=== PATIENT | female | born 1985 | race Caucasian/White ===

== ENCOUNTER 2019-12-14 02:18 | Inpatient (IN) | payer OTHER ==
[~2019-12-14] VITALS: Ht 160 cm; Wt 49.4 kg
--- NOTE | ~2019-12-14 | O ---
[facility] [place] [address] [address] OPERATIVE REPORT Name: JANIYA ARGUETA Room #: 450-P ADM IN M.R.#: [id number] Admission: 12/14/19 Attend Phys: Dru Henry MD Discharge: Date of : 81 Report #: [id number] THIS REPORT FOR: cc: RENETTA - No family physician/PCP RENETTA - No family physician/PCP Elmo Roman MD ~ CC: Dru JACKSON physician/PCP DATE OF SERVICE: 12/15/2019 PREOPERATIVE DIAGNOSIS: Acute cholecystitis. POSTOPERATIVE DIAGNOSIS: Acute cholecystitis. OPERATION: Laparoscopic cholecystectomy. SURGEON: Elmo Roman MD ANESTHESIA: General. ESTIMATED BLOOD LOSS: Minimal. SPECIMEN: Gallbladder. DESCRIPTION OF PROCEDURE: After informed consent was obtained, the patient was brought to the operating room and placed supine. SCDs were placed and working, preoperative antibiotics were administered, general anesthesia was induced. The abdomen was prepped and draped in the usual sterile fashion. A Veress needle was inserted in the left upper quadrant. Pneumoperitoneum was established. Supraumbilical 5 mm trocar was placed under direct vision. Three right upper quadrant 5 mm ports were placed. Gallbladder was then grasped and retracted cephalad. Infundibulum was grasped and retracted laterally. I dissected out the cystic duct and cystic artery. The cystic duct and artery were clipped and ligated after the cystic plate was fully identified. Cystic duct and artery were clipped and ligated leaving 2 clips on the remaining duct and one on the remaining artery. Gallbladder was then taken off the liver bed with electrocautery. It was placed into an Endopouch and removed. Fascia was then closed with a [id number] 0 Vicryl. Skin was closed with 4-0 Monocryl. Incisions were sealed with Dermabond. COMPLICATIONS: None. [facility] [address] [place] [address] OPERATIVE REPORT Name: JANIYA ARGUETA Room #: 450-P [facility].#: [id number] Admission: 12/14/19 Attend Phys: Dru Henry MD Discharge: Date of : 81 Report #: [id number] DISPOSITION: The patient was taken to recovery in satisfactory condition. By: [id number] Elmo Roman MD /nt
[2019-12-14 02:33] VITALS: BP 129/81
[2019-12-14 03:04] LABS: BASOPHILS 0.8 % (0.0-2.0); EOSINOPHILS 1.9 % (0.0-3.0); HEMATOCRIT 40.2 % (37.0-47.0); HEMOGLOBIN 13.6 gm/dL (12.0-15.0); LYMPHOCYTES 34.1 % (24.0-44.0); MCH 31.8 pg (26.0-34.0); MCHC 33.8 g/dL (28.0-37.0); MCV 94.2 fL (80.0-100.0); MONOCYTES 7.3 % (1.0-8.0); PLATELET COUNT 261 thou/uL (150-400); POLYS 55.9 % (36.0-66.0); RBC 4.27 mil/uL (4.20-5.00); RDW 13.8 % (10.5-14.5)
[2019-12-14 03:13] LABS: CREATININE 0.8 mg/dL (0.6-1.0); POTASSIUM 4.1 mmol/L (3.5-5.1)
[2019-12-14 03:19] LABS: ALBUMIN 3.8 g/dL (3.4-5.0); TOTAL BILIRUBIN 0.4 mg/dL (0.2-1.0); TOTAL PROTEIN 7.6 g/dL (6.4-8.2)
[2019-12-14 03:23] LABS: URINE BILIRUBIN NEGATIVE (Negative); URINE BLOOD 1+ (Negative); URINE CLARITY CLEAR; URINE COLOR YELLOW; URINE GLUCOSE-RANDOM* NEGATIVE (Negative); URINE KETONES NEGATIVE (Negative); URINE LEUKOCYTES-REFLEX NEGATIVE (Negative); URINE NITRITE-REFLEX NEGATIVE (Negative); URINE PROTEIN (DIPSTICK) NEGATIVE (Negative); URINE SPECIFIC GRAVITY >= 1.030 (1.005-1.035); URINE UROBILINOGEN 0.2 E.U./dl (0.2-1.0)
[2019-12-14 04:50] LABS: BACTERIA-REFLEX 1-9 Few /HPF (None Seen); CALCIUM OXALATE 0-3 Few /LPF (None Seen); CASTS None Seen /LPF (None Seen); MUCUS 4-6 Moderate strn/LPF (None Seen); SQUAMOUS 0-3 Few /LPF (0-3); URINE RBC 3-10 Few /HPF (0-2); URINE WBC-REFLEX 0-5 Rare /HPF (0-5)
[2019-12-14 05:57] VITALS: BP 103/71
[2019-12-14 06:10] VITALS: BP 94/61
[2019-12-14 06:30] VITALS: BP 115/75
--- NOTE | 2019-12-14 06:34 | NUR ---
ADMITTED TO THE UNIT AT 1830. PT IS A/O X4 AND UP AD KUSH. DOES NOT SPEAK VERY MUCH AMHARIC. THE DAY SHIFT NURSE IS BETTER TO ASSIST IN FINISHING ADMISSION SHE IS GEORGIAN SPEAKING. PT IS TEARFUL AND APPEARS TO BE IN PAIN. AWAITING ORDERS FOR PAIN MEDICATION. AT THIS TIME, PT IS LYING IN HER BED AND APPEARS TO BE ON HER PHONE. CONSENTS SIGNED, AND APPROPRIATE NAME BAND PLACED. WILL REPORT TO ONCOMING NURSE.
[2019-12-14 12:29] VITALS: BP 106/58
--- NOTE | 2019-12-14 14:59 | NUR ---
ASSUMED PT CARE THIS AM. PT VITAL SIGNS STABLE, PATIENT IS A&OX4. ADMISSION ASSESSMENT COMPLETE. PT IS IN PAIN, ORDERS PUT IN FOR MEDICATION FROM DR. VALLADARES. PT INITIALLY DID NOT RESPOND TO PAIN MEDICATION GIVEN, BUT OVER TIME REPORTED A DECREASE IN PAIN FROM A 10 TO A 3. PT CONTINENT AND AMBULATES TO THE BATHROOM. PT REPORTS NO PAIN WITH RIGHT AC IV, AND FLUIDS ARE INFUSING. PT HAD A COVID TEST WHICH CAME BACK NEGATIVE. SCDS ARE ON. PT IS ON A CLEAR LIQUID DIET. PT IS COOPERATIVE AND TURNS SELF INDEPENDENTLY.
[2019-12-14 19:37] VITALS: BP 89/55
[2019-12-15 03:38] VITALS: BP 101/62
--- NOTE | 2019-12-15 04:15 | NUR ---
VSS-AFEBRILE. OCCASIONAL C/O ABDOMINAL PAIN, RELIEVED WITH PO/IV PAIN MEDICATIONS. KEPT NPO AFTER MIDNIGHT. NO REPORTED N/V. OOB AD KUSH TO USE RESTROOM, STEADY ON FFET. NO DIFFICULTY VOIDING, NO BM THIS SHIFT. CALLS APPROPRIATELY FOR ANY NEEDED ASSISTANCE.
[2019-12-15 07:22] VITALS: BP 93/54
[2019-12-15] MEDS ORDERED: NORCO 10-325 T1 EACH PO (11:33)
[2019-12-15 13:18] VITALS: BP 93/54
--- NOTE | 2019-12-15 15:03 | NUR ---
PT IS AOX4, VSS, PT RATES PAIN IN ABD AREA 4-5 OUT OF 10. PT HAS 5 SURGICAL SITES THAT ARE CDI. PT TOLERATES A REGULAR DIET. NURSE GAVE ORAL PAIN ANALGESIC AND NAUSEA MEDICATION. IV DISCONTINUED, PT IS READY TO TRANSPORT PT HOME PER CAR.
== END 2019-12-15 15:17 | disposition home or self-care (01) | DRG 419 ==
LOC: ER 02:18 → EROBS 05:36 → 4W 06:46
PROVIDERS: Emergency Medicine; ADMIT Surgery; ATTEND Surgery
PROC: 0FT44ZZ Resection of Gallbladder, Percutaneous Endoscopic Approach (ICD-10-PCS; principal; 2019-12-15)
DX: K80.42 Calculus of bile duct with acute cholecystitis without obstruction (principal); Z20.828 Contact with and (suspected) exposure to other viral communicable diseases
CPT/HCPCS: 10047; 50010; 50101; 50411; 50555; 50558; 51489; 52265; 52266; 53307; 53310; 53312; 54118; 55245; 56462; 56525; 56526; 62110; 62900; 70005

== ENCOUNTER 2019-12-30 01:41 | Inpatient (IN) | payer OTHER ==
[~2019-12-30] VITALS: Ht 160 cm; Wt 71.2 kg
[~2019-12-30 01:41] MED LIST: NORCO 10-325 T1 EACH PO
[2019-12-30 02:32] LABS: BASOPHILS 0.7 % (0.0-2.0); EOSINOPHILS 3.4 % (0.0-3.0); HEMATOCRIT 37.3 % (37.0-47.0); HEMOGLOBIN 12.6 gm/dL (12.0-15.0); LYMPHOCYTES 35.2 % (24.0-44.0); MCH 31.3 pg (26.0-34.0); MCHC 33.7 g/dL (28.0-37.0); MCV 92.9 fL (80.0-100.0); MONOCYTES 5.8 % (1.0-8.0); PLATELET COUNT 298 thou/uL (150-400); POLYS 54.9 % (36.0-66.0); RBC 4.01 mil/uL (4.20-5.00); RDW 13.4 % (10.5-14.5); WBC 12.8 thou/uL (4.0-11.0)
[2019-12-30 02:37] LABS: ANION GAP 13 mmol/L (7-16); BUN 14 mg/dL (7-18); CALCIUM 8.7 mg/dL (8.5-10.1); CHLORIDE 105 mmol/L (98-107); CO2 22 mmol/L (21-32); CREATININE 0.9 mg/dL (0.6-1.0); GLUCOSE 101 mg/dL (74-106); POTASSIUM 3.5 mmol/L (3.5-5.1); SODIUM 140 mmol/L (136-145)
[2019-12-30 02:47] LABS: ALBUMIN 3.5 g/dL (3.4-5.0); LIPASE 95 U/L (73-393); SGOT 39 U/L (15-37); SGPT 49 U/L (30-65); TOTAL BILIRUBIN 0.2 mg/dL (0.2-1.0); TOTAL PROTEIN 7.2 g/dL (6.4-8.2); TROPONIN-I <0.06 ng/mL (<0.06)
[2019-12-30 04:34] LABS: URINE BILIRUBIN NEGATIVE (Negative); URINE BLOOD TRACE (Negative); URINE CLARITY CLEAR; URINE COLOR YELLOW; URINE GLUCOSE-RANDOM* NEGATIVE (Negative); URINE KETONES NEGATIVE (Negative); URINE LEUKOCYTES-REFLEX NEGATIVE (Negative); URINE NITRITE-REFLEX NEGATIVE (Negative); URINE PROTEIN (DIPSTICK) NEGATIVE (Negative); URINE UROBILINOGEN 0.2 E.U./dl (0.2-1.0)
[2019-12-30 05:00] VITALS: BP 120/72
[2019-12-30 05:27] VITALS: BP 105/66
[2019-12-30 08:19] VITALS: BP 116/72
--- NOTE | 2019-12-30 11:04 | NUR ---
PT'S STATED THAT THEY WOULD LIKE A SURGICAL FOLLOW UP VISIT POST DISCHARGE. HE STATES THEY WERE TOLD THEY WOULD HAVE A CALL AND FOLLOW UP VISIT AFTER TWO WEEKS BUT NO ONE CALLED THEM. STATES PT WILL ALSO NEED A WORK RELEASE NOTE AT D/C.
[2019-12-30 15:41] VITALS: BP 106/74
--- NOTE | 2019-12-30 16:58 | NUR ---
PT'S MARIEL STATES THAT HE HAS TO WORK TOMORROW. HE WOULD LIKE THE STAFF TO USE THE C[employer] TILE FLOOR LAYER LINE IF THE DOCTOR ROUNDS AND HE HAS ALREADY LEFT FOR THE DAY. THIS RN WILL PASS THIS INFORMATION ON TO THE NIGHT RN AT SHIFT REPORT. CHARGE NURSE WAS ALSO MADE AWARE ON THIS SHIFT.
[2019-12-30 19:25] VITALS: BP 106/57
--- NOTE | 2019-12-31 05:15 | NUR ---
ASSUEMED PT CARE AROUND 1930. UZBEK SPEAKING ONLY. VSS. LAP SITES CDI. DENIES ABD PAIN,N,V. NO S/S ACUTE DISTRESS NOTED OR REPORTED AT THIS TIME. WILL CONT TO MONITOR FOR ANY CHANGES IN CONDITION.
[2019-12-31 05:42] VITALS: BP 101/54
[2019-12-31 07:11] VITALS: BP 110/67
--- NOTE | 2019-12-31 08:13 | EKG ---
[facility] [place] [address] [place] [address] ELECTROCARDIOGRAM REPORT Name: JANIYA ARGUETA Room #: 455-P ADM IN M.R.#: [id number] Admission: 12/30/19 Attend Phys: Dru Henry MD Discharge: Date of : 81 Report #: [id number] THIS REPORT FOR: cc: NO FAMILY PHYSICIAN or PCP NO FAMILY PHYSICIAN or PCP Dio Rothman MD [facility] ~ THIS REPORT FOR: //name// [facility] ED Test Date: 2019-12-30 Test Time: 02:37:16 Pat Name: JANIYA GRADY Department: Room: [facility] Gender: F Pants Presser Automatic: mpark : [phone] Requested By: Justin Reynoso Order Number: [id number] MD: Dio Rothman Measurements Intervals [place] Rate: 71 P: 75 FL: 154 QRS: 65 QRSD: 86 T: 47 QT: 397 QTc: 432 Interpretive Statements Sinus rhythm Normal tracing No previous ECG available for comparison Electronically Signed On 12-31-2019 8:13:18 CDT by Dio Rothman [email or web address] <ELECTRONICALLY SIGNED> By: Dio Rothman MD, FAC 12/31/19 0813 0237 Dio Rothman MD, [facility] /EPI
[2019-12-31 13:37] VITALS: BP 110/67
--- NOTE | 2019-12-31 19:37 | NUR ---
ASSUMED CARE OF PATIENT AT APPROX 0700. ASSESSMENT CHARTED. VSS. PATIENT IS A&OX4, KHMER SPEAKING. DENIES PAIN. DENIES N/V. LAP SITE C/D/I. DR. MARTINEZ EXAMINED HER AND CLEARED HER FOR DISCHARGE. LEFT UNIT AT 1400. VOICED NO OTHER NEEDS.
--- NOTE | 2019-12-31 19:43 | NUR ---
I AGREE WITH NURSING ASSESSMENT AND NURSING NOTE DONE BY SERJIO/EMPLOYMENT SECURITY OFFICER.
== END 2019-12-31 15:22 | disposition home or self-care (01) | DRG 392 ==
LOC: ER 01:41 → EROBS 03:54 → 4W 03:54
PROVIDERS: Emergency Medicine; ADMIT Surgery; ATTEND Surgery
DX: R11.0 Nausea (principal); R10.11 Right upper quadrant pain; Z90.49 Acquired absence of other specified parts of digestive tract; Z79.899 Other long term (current) drug therapy
CPT/HCPCS: 10040

== ENCOUNTER 2020-08-19 08:43 | Emergency (ER) | payer OTHER ==
[~2020-08-19] VITALS: Ht 162.6 cm; Wt 56.7 kg
[2020-08-19] MEDS ORDERED: TYLENOL (08:51)
[2020-08-19] MEDS ORDERED: ASPIRIN (08:51)
[2020-08-19] MEDS ORDERED: BUTALB-APAP-CA1 EACH PO (10:26)
[2020-08-19 11:00] VITALS: BP 99/64
== END 2020-08-19 11:00 | disposition home or self-care (01) ==
LOC: ER 08:43
DX: R51.9 Headache, unspecified (principal); H53.149 Visual discomfort, unspecified; Z98.890 Other specified postprocedural states; Z79.899 Other long term (current) drug therapy

== ENCOUNTER 2021-02-15 23:27 | Emergency (ER) | payer OTHER ==
[~2021-02-15] VITALS: Ht 154.9 cm; Wt 55.3 kg
[~2021-02-15 23:27] MED LIST changes: +ASPIRIN; +BUTALB-APAP-CA1 EACH PO; +TYLENOL
[2021-02-15 23:55] LABS: URINE BILIRUBIN NEGATIVE (Negative); URINE BLOOD 1+ (Negative); URINE CLARITY CLEAR; URINE COLOR YELLOW; URINE GLUCOSE-RANDOM* NEGATIVE (Negative); URINE KETONES TRACE (Negative); URINE LEUKOCYTES-REFLEX NEGATIVE (Negative); URINE NITRITE-REFLEX NEGATIVE (Negative); URINE PROTEIN (DIPSTICK) NEGATIVE (Negative); URINE SPECIFIC GRAVITY >= 1.030 (1.005-1.035); URINE UROBILINOGEN 0.2 E.U./dl (0.2-1.0)
[2021-02-16 00:08] LABS: BACTERIA-REFLEX None Seen /HPF (None Seen); CASTS None Seen /LPF (None Seen); CRYSTALS None Seen /LPF (None Seen); MUCUS 0-3 Light strn/LPF (None Seen); SQUAMOUS None Seen /LPF (0-3); URINE RBC 1-2 Rare /HPF (NONE SEEN); URINE WBC-REFLEX None Seen /HPF (0-5)
[2021-02-16 00:13] LABS: ABSOLUTE NEUTROPHILS 8.2 thou/uL (1.4-8.2); BASOPHILS 0.5 % (0.0-2.0); EOSINOPHILS 0.6 % (0.0-3.0); HEMATOCRIT 37.6 % (37.0-47.0); HEMOGLOBIN 12.7 gm/dL (12.0-15.0); LYMPHOCYTES 22.7 % (24.0-44.0); MCHC 33.8 g/dL (28.0-37.0); MCV 91.7 fL (80.0-100.0); MONOCYTES 5.4 % (1.0-8.0); PLATELET COUNT 286 thou/uL (150-400); POLYS 70.8 % (36.0-66.0); RDW 13.7 % (10.5-14.5); WBC 11.6 thou/uL (4.0-11.0)
[2021-02-16 00:26] LABS: ANION GAP 12 mmol/L (7-16); BUN 13 mg/dL (7-18); CHLORIDE 104 mmol/L (98-107); CO2 25 mmol/L (21-32); CREATININE 0.8 mg/dL (0.6-1.0); GLUCOSE 121 mg/dL (74-106); POTASSIUM 3.2 mmol/L (3.5-5.1); SODIUM 141 mmol/L (136-145)
[2021-02-16 00:30] LABS: ALBUMIN 3.8 g/dL (3.4-5.0); DIRECT BILIRUBIN < 0.1 mg/dL (<0.1-0.2); LIPASE 68 U/L (73-393); SGOT 20 U/L (15-37); SGPT 20 U/L (14-59); TOTAL BILIRUBIN 0.3 mg/dL (0.2-1.0); TOTAL PROTEIN 7.5 g/dL (6.4-8.2)
[2021-02-16] MEDS ORDERED: PERCOCET 5-3251 EACH PO (02:28)
[2021-02-16 03:14] VITALS: BP 134/76
== END 2021-02-16 02:45 | disposition home or self-care (01) ==
LOC: ER 23:27
PROVIDERS: Student in an Organized Health Care Education/Training Program
DX: R10.11 Right upper quadrant pain (principal); Z90.49 Acquired absence of other specified parts of digestive tract; Z90.89 Acquired absence of other organs; Z79.899 Other long term (current) drug therapy; Z79.891 Long term (current) use of opiate analgesic; Z79.82 Long term (current) use of aspirin